=== PATIENT | male | born 1955 | race Caucasian/White ===

== ENCOUNTER 2021-09-02 18:00 | Emergency (ER) | payer MEDICARE, OTHER ==
[~2021-09-02] VITALS: Ht 180.3 cm; Wt 102.3 kg
[2021-09-02 18:03] VITALS: TEMP 98.2
[2021-09-02 18:22] LABS: BASO # 0.1 K/mm3 (0.0-0.2); BASO % 0.6 % (0.0-2.0); EOS # 0.6 K/mm3 (0.0-0.7); EOS % 6.7 % (0.0-4.0); GRAN # 5.4 K/mm3 (1.4-6.5); GRAN % 65.8 % (42.2-75.2); HEMATOCRIT 43.7 % (42.0-52.0); HEMOGLOBIN 14.9 g/dl (13.5-18.0); LYMPH # 1.6 K/mm3 (1.2-3.4); LYMPH % 19.8 % (20.0-51.0); MEAN CELL VOLUME 91 fl (80.0-100.0); MEAN CORPUSCULAR HEMOGLOBIN 31 pg (27-31); MEAN CORPUSCULAR HGB CONC 34 g/dl (33.0-37.0); MEAN PLATELET VOLUME 11.2 fl (7.4-10.4); MONO # 0.6 K/mm3 (0.1-0.6); MONO % 6.9 % (1.7-9.3); PLATELET COUNT 151 K/mm3 (130-400); RED BLOOD COUNT 4.82 M/mm3 (4.20-5.60); REDCELL DISTRIBUTION WIDTH-CV 12.6 % (11.5-14.5)
[2021-09-02 18:27] LABS: PROTHROMBIN TIME 11.6 SECONDS (9.7-12.8)
[2021-09-02 18:30] LABS: PARTIAL THROMBOPLASTIN TIME 37.5 SECONDS (26.0-37.0)
[2021-09-02 18:40] LABS: ALBUMIN 3.8 gm/dL (3.4-4.8); BILIRUBIN,TOTAL 0.4 mg/dL (0.2-1.2); CALCIUM 9.3 mg/dL (8.4-10.2); CREATININE, serum 1.2 mg/dL (0.72-1.25); TOTAL PROTEIN 7.2 gm/dL (6.2-8.1)
[2021-09-02 18:48] LABS: TROPONIN-I 5.407 ng/mL (0.00-0.033)
[2021-09-02 18:55] VITALS: BP 151/78; PULSE 68
== END 2021-09-02 18:57 | disposition short-term general hospital (02) ==
LOC: COL.ER 18:00
PROVIDERS: Family Medicine
DX: I21.19 ST elevation (STEMI) myocardial infarction involving other coronary artery of inferior wall (principal); Z20.822 Contact with and (suspected) exposure to COVID-19; Z28.310 Unvaccinated for COVID-19
CPT/HCPCS: J1644; J3101; J7030

== ENCOUNTER 2021-10-02 12:27 | Outpatient (RCR) | payer MEDICARE, OTHER | END 2021-10-03 | disposition home or self-care (01) | LOC: COL.CR | DX: Z48.812 Encounter for surgical aftercare following surgery on the circulatory system (principal); Z98.61 Coronary angioplasty status ==

== ENCOUNTER 2021-10-11 15:13 | Outpatient (RCR) | payer MEDICARE, OTHER | END 2021-11-03 | disposition home or self-care (01) | LOC: COL.CR | DX: Z29.8 Encounter for other specified prophylactic measures (principal); Z98.61 Coronary angioplasty status ==

== ENCOUNTER → 2021-12-04 | Outpatient (RCR) | payer MEDICARE, OTHER | END | disposition home or self-care (01) | LOC: COL.CR | DX: Z48.812 Encounter for surgical aftercare following surgery on the circulatory system (principal); Z98.61 Coronary angioplasty status ==

== ENCOUNTER 2022-01-29 12:11 | Outpatient (RCR) | payer MEDICARE, OTHER | END 2022-02-03 | disposition home or self-care (01) | LOC: COL.CR | DX: Z48.812 Encounter for surgical aftercare following surgery on the circulatory system (principal); Z98.61 Coronary angioplasty status ==